=== PATIENT | female | born 1930 | race Caucasian/White ===

== ENCOUNTER 2018-08-09 21:10 | Emergency (ER) | payer OTHER ==
[~2018-08-09] VITALS: Ht 160 cm; Wt 46.3 kg
[2018-08-09] MEDS ORDERED: PNEU16DI2 (21:29)
[2018-08-09] MEDS ORDERED: FORTAMET500 MG (21:29)
[2018-08-09] MEDS ORDERED: AMARIL (21:30)
[2018-08-09] MEDS ORDERED: SOTALOL80 MG (21:30)
[2018-08-09] MEDS ORDERED: ADULT ASPIRIN81 MG (21:31)
[2018-08-09] MEDS ORDERED: VASOTEC20 M1 (21:31)
[2018-08-09] MEDS ORDERED: PRAVACHOL80 MG (21:31)
[2018-08-09] MEDS ORDERED: AMLODIPINE BESY10 MG (21:32)
[2018-08-09] MEDS ORDERED: ISOSORBIDE DINI30 MG (21:32)
[2018-08-09] MEDS ORDERED: SIMVASTATIN20 MG (21:33)
[2018-08-09] MEDS ORDERED: METFORMIN HYDRO25 GM (21:34)
[2018-08-09] MEDS ORDERED: DETROL2 MG (21:35)
== END 2018-08-10 01:36 | disposition home or self-care (01) ==
LOC: ER 21:10
DX: R41.0 Disorientation, unspecified (principal); E11.649 Type 2 diabetes mellitus with hypoglycemia without coma

== ENCOUNTER 2019-08-01 14:10 | Inpatient (IN) | payer OTHER ==
[~2019-08-01] VITALS: Ht 152.4 cm; Wt 45.4 kg
[~2019-08-01 14:10] MED LIST: ADULT ASPIRIN81 MG; AMARIL; AMLODIPINE BESY10 MG; DETROL2 MG; FORTAMET500 MG; ISOSORBIDE DINI30 MG; METFORMIN HYDRO25 GM; PNEU16DI2; PRAVACHOL80 MG; SIMVASTATIN20 MG; SOTALOL80 MG; VASOTEC20 M1
[2019-08-01] MEDS ORDERED: LEVOTHYROXINE25 MCG (14:19)
[2019-08-01] MEDS ORDERED: COZAAR25 MG (14:19)
[2019-08-01] MEDS ORDERED: FOLIC ACID0.4 MG (14:19)
[2019-08-01] MEDS ORDERED: B-121000 MC1 (14:20)
[2019-08-10] MEDS ORDERED: ACTIGALL300 MG PO (15:05)
== END 2019-08-10 16:31 | disposition home or self-care (01) | DRG 445 ==
LOC: ER 14:10 → MEDJ 08-02 12:16
PROVIDERS: ADMIT Internal Medicine
PROC: BF37ZZZ Magnetic Resonance Imaging (MRI) of Pancreas (ICD-10-PCS; 2019-08-06)
PROC: BW40ZZZ Ultrasonography of Abdomen (ICD-10-PCS; 2019-08-06)
PROC: B246ZZZ Ultrasonography of Right and Left Heart (ICD-10-PCS; 2019-08-07)
PROC: 0F798ZZ Dilation of Common Bile Duct, Via Natural or Artificial Opening Endoscopic (ICD-10-PCS; principal; 2019-08-09)
PROC: BF10YZZ Fluoroscopy of Bile Ducts using Other Contrast (ICD-10-PCS; 2019-08-09)
DX: K80.43 Calculus of bile duct with acute cholecystitis with obstruction (principal); K56.690 Other partial intestinal obstruction; R65.10 Systemic inflammatory response syndrome (SIRS) of non-infectious origin without acute organ dysfunction; K59.09 Other constipation; K57.30 Diverticulosis of large intestine without perforation or abscess without bleeding; D72.828 Other elevated white blood cell count; G30.0 Alzheimer's disease with early onset; F02.80 Dementia in other diseases classified elsewhere, unspecified severity, without behavioral disturbance, psychotic disturbance, mood disturbance, and anxiety; E11.65 Type 2 diabetes mellitus with hyperglycemia; E87.6 Hypokalemia; I08.3 Combined rheumatic disorders of mitral, aortic and tricuspid valves; Z79.4 Long term (current) use of insulin

== ENCOUNTER 2019-11-11 15:49 | Emergency (ER) | payer OTHER ==
[~2019-11-11] VITALS: Ht 152.4 cm; Wt 43.1 kg
[~2019-11-11 15:49] MED LIST changes: +ACTIGALL300 MG PO; +B-121000 MC1; +COZAAR25 MG; +FOLIC ACID0.4 MG; +LEVOTHYROXINE25 MCG
[2019-11-11] MEDS ORDERED: HYDROCHLOROTHIA25 MG (16:07)
[2019-11-11] MEDS ORDERED: PEPCID AC20 MG (16:07)
[2019-11-11] MEDS ORDERED: FEROSUL325 MG (16:07)
[2019-11-11] MEDS ORDERED: ZESTRIL30 MG (16:08)
== END 2019-11-11 22:04 | disposition home or self-care (01) ==
LOC: ER 15:49
DX: R63.0 Anorexia (principal); N39.0 Urinary tract infection, site not specified; B95.2 Enterococcus as the cause of diseases classified elsewhere; B96.1 Klebsiella pneumoniae [K. pneumoniae] as the cause of diseases classified elsewhere

== ENCOUNTER 2019-11-22 15:35 | Emergency (ER) | payer OTHER ==
[~2019-11-22] VITALS: Ht 149.9 cm; Wt 59.0 kg
[~2019-11-22 15:35] MED LIST changes: +FEROSUL325 MG; +HYDROCHLOROTHIA25 MG; +PEPCID AC20 MG; +ZESTRIL30 MG
== END 2019-11-23 00:24 | disposition home or self-care (01) ==
LOC: ER 15:35
DX: N39.0 Urinary tract infection, site not specified (principal); G30.9 Alzheimer's disease, unspecified; F02.80 Dementia in other diseases classified elsewhere, unspecified severity, without behavioral disturbance, psychotic disturbance, mood disturbance, and anxiety

== ENCOUNTER 2019-11-23 21:28 | Emergency (ER) | payer OTHER ==
[~2019-11-23] VITALS: Ht 152.4 cm; Wt 59.9 kg
== END 2019-11-23 22:16 | disposition home or self-care (01) ==
LOC: ER 21:28
DX: N39.0 Urinary tract infection, site not specified (principal)

== ENCOUNTER 2020-02-27 16:36 | Inpatient (IN) | payer OTHER ==
[~2020-02-27] VITALS: Ht 157.5 cm; Wt 45.4 kg
== END 2020-03-07 18:33 | disposition home or self-care (01) | DRG 811 ==
LOC: ER 16:36 → EDBD 16:39 → ER 16:39 → SURG 20:09 → SURH 02-29 07:40
PROVIDERS: ADMIT Internal Medicine
PROC: 8E0ZXY6 Isolation (ICD-10-PCS; 2020-02-27)
PROC: 30233N1 Transfusion of Nonautologous Red Blood Cells into Peripheral Vein, Percutaneous Approach (ICD-10-PCS; principal; 2020-02-28)
DX: D64.9 Anemia, unspecified (principal); R65.11 Systemic inflammatory response syndrome (SIRS) of non-infectious origin with acute organ dysfunction; N39.0 Urinary tract infection, site not specified; N17.9 Acute kidney failure, unspecified; E46 Unspecified protein-calorie malnutrition; E03.9 Hypothyroidism, unspecified; G30.9 Alzheimer's disease, unspecified; F02.80 Dementia in other diseases classified elsewhere, unspecified severity, without behavioral disturbance, psychotic disturbance, mood disturbance, and anxiety; I12.9 Hypertensive chronic kidney disease with stage 1 through stage 4 chronic kidney disease, or unspecified chronic kidney disease; E11.22 Type 2 diabetes mellitus with diabetic chronic kidney disease; N18.9 Chronic kidney disease, unspecified; E11.649 Type 2 diabetes mellitus with hypoglycemia without coma; E88.09 Other disorders of plasma-protein metabolism, not elsewhere classified; Z74.01 Bed confinement status; E87.6 Hypokalemia; I16.0 Hypertensive urgency; E86.9 Volume depletion, unspecified; B96.20 Unspecified Escherichia coli [E. coli] as the cause of diseases classified elsewhere